=== PATIENT | female | born 1995 | race Two or more races ===

== ENCOUNTER 2017-02-07 20:05 | Observation (INO) | payer MEDICAID | END 2017-02-07 22:00 | disposition home or self-care (01) | DRG 566 | LOC: LDRP 20:05 | PROVIDERS: ADMIT Specialist; ATTEND Specialist | DX: O36.8130 Decreased fetal movements, third trimester, not applicable or unspecified (principal); O62.9 Abnormality of forces of labor, unspecified; Z3A.39 39 weeks gestation of pregnancy | CPT/HCPCS: 59025; 76818; 81002; G0378 ==